=== PATIENT | male | born 1990 | race Caucasian/White ===

== ENCOUNTER 2017-08-10 21:14 | Emergency (ER) | payer SELFPAY ==
[~2017-08-10] VITALS: Ht 182.9 cm; Wt 75.0 kg
[~2017-08-10 21:14] MED LIST: NOHOMEMEDS
[2017-08-10] MEDS ORDERED: EPIPEN ADU0.3 MG/0.3 IM (22:36)
[2017-08-10] MEDS ORDERED: PREDNISONE20 MG PO (22:36)
[2017-08-10 23:38] VITALS: BP 109/74
== END 2017-08-10 23:40 | disposition home or self-care (01) ==
LOC: EME 21:14
DX: R11.2 Nausea with vomiting, unspecified (principal); R42 Dizziness and giddiness; R06.02 Shortness of breath; T36.0X5A Adverse effect of penicillins, initial encounter
CPT/HCPCS: 99281; 99284; J1200; J7512